=== PATIENT | male | born 1940 | race Caucasian/White ===

== ENCOUNTER 2016-05-16 16:17 | Emergency (ER) | payer MEDICARE ==
[~2016-05-16 16:17] MED LIST: ALLOPURINOL300 MG PO; ASPIR-LOW81 MG PO; BENAZEPRIL HCL10 MG PO; CARDURA4 MG PO; CIPRO250 MG PO; GLUCOSAMINE H1500 MG PO; LOTRISONE CREAM45 GM TP; MULTIVITAMIN1 TAB PO; NORCO 5/325 TAB1 TAB PO; POTASSIUM PO; SIMVASTATIN20 MG PO; VITAMIN C PO
[2016-05-16] MEDS ORDERED: KEFLEX500 M4 PO (18:33)
[2016-05-16] MEDS ORDERED: HYDROCODON-ACE1 EA16 PO (18:37)
== END 2016-05-16 19:12 ==
LOC: EDMED 16:17
DX: L03.116 Cellulitis of left lower limb (principal); M25.562 Pain in left knee; I10 Essential (primary) hypertension; Z98.890 Other specified postprocedural states; Z79.82 Long term (current) use of aspirin; Z79.899 Other long term (current) drug therapy